=== PATIENT | female | born 1940 | race Two or more races ===

== ENCOUNTER 2018-02-23 08:52 | Emergency (ER) | payer OTHER ==
[~2018-02-23] VITALS: Ht 162.6 cm; Wt 93.1 kg
--- NOTE | 2018-02-23 09:38 | NUR ---
PT REPORTS DIZZINESS BEGINNING , PT REPORTS FEELING MOTION SICK AND THAT SHE HAS TO HOLD ONTO SOMETHING TO STEADY HERSELF WHILE WALKING. PT'S DAUGHTER REPORTS THAT PT'S DEMEANOR HAS BEEN OUT OF CHARACTER SINCE WELL. PT WAS SEEN AT [facility] ON FOR HER DIZZINESS AND HER HOME BP MEDS WHERE INCREASED D/T HER ELEVATED BP. MEDICATION CHANGES HAVE NOT IMPROVED HER DIZZINESS. PT HOOKED UP TO MONITORS, GIVEN WARM BLANKETS, NAD, NO NEEDS AT THIS TIME, CALL LIGHT IN REACH.
[2018-02-23 10:21] LABS: BASOPHILS # (AUTO) 0.04 x10^3/uL (0-0.1); BASOPHILS % (AUTO) 1 % (0-1); EOSINOPHILS # (AUTO) 0.16 x10^3/uL (0-0.4); EOSINOPHILS % (AUTO) 3 % (1-7); LYMPHOCYTES # (AUTO) 1.57 x10^3/uL (1-3.4); LYMPHOCYTES % (AUTO) 32 % (22-44); MD NO; MEAN CORPUSCULAR HEMOGLOBIN 31.2 pg (27.0-34.8); MEAN CORPUSCULAR HGB CONC 33.8 g/dL (32.4-35.8); MEAN CORPUSCULAR VOLUME 92.4 fL (80-100); MEAN PLATELET VOLUME 7.7 fL (7.4-10.4); MONOCYTES # (AUTO) 0.46 x10^3/uL (0.2-0.8); MONOCYTES % (AUTO) 9 % (2-9); NEUTROPHILS # (AUTO) 2.69 x10^3/uL (1.8-6.8); NEUTROPHILS % (AUTO) 55 % (42-75); PLATELET COUNT 316 x10^3/uL (130-400); RED BLOOD COUNT 4.64 x10^6/uL (3.82-5.3); RED CELL DISTRIBUTION WIDTH 13.9 % (9.6-15.2)
[2018-02-23 10:33] LABS: ALANINE AMINOTRANSFERASE 41 U/L (12-78); ALBUMIN 3.6 g/dL (3.4-5.0); ANION GAP 6 mmol/L (5-15); CALCIUM 9.1 mg/dL (8.5-10.1); CHLORIDE 109 mmol/L (98-107); CREATININE 0.88 mg/dL (0.55-1.02)
[2018-02-23 10:36] LABS: ALKALINE PHOSPHATASE 95 U/L (45-117); BILIRUBIN,TOTAL 0.4 mg/dL (0.2-1.0); TOTAL PROTEIN 8.2 g/dL (6.4-8.2)
[2018-02-23 11:37] VITALS: BP 150/80
== END 2018-02-23 11:39 | disposition home or self-care (01) ==
LOC: ED 11:33
DX: I10 Essential (primary) hypertension (principal)
CPT/HCPCS: 36415; 70450; 71045; 80053; 85025; 93005; 99284